=== PATIENT | male | born 1945 | race Caucasian/White ===

== ENCOUNTER 2017-12-03 12:07 | Day surgery (SDC) | payer MEDICARE, OTHER ==
[~2017-12-03] VITALS: Ht 177.8 cm; Wt 82.0 kg
[2017-12-03] MEDS ORDERED: TOPROL XL100 MG PO (12:32)
[2017-12-03] MEDS ORDERED: PRINIVIL20 MG PO (12:33)
[2017-12-03] MEDS ORDERED: PRILOSEC 20MG20 MG PO (12:35)
[2017-12-03] MEDS ORDERED: LIPITOR20 MG PO (12:35)
[2017-12-03] MEDS ORDERED: ZYLOPRIM 100MG100 MG PO (12:36)
[2017-12-03] MEDS ORDERED: COLCRYS0.6 MG PO (12:36)
[2017-12-03 12:48] VITALS: BP 148/77; PULSE 61; TEMP 97.9
[2017-12-03] MEDS ORDERED: METAMUCIL3.4 GM/DOS PO (12:59)
[2017-12-03 13:51] VITALS: BP 156/82; PULSE 62; TEMP 98.3
[2017-12-03 14:05] VITALS: BP 156/82; PULSE 62
[2017-12-03 14:20] VITALS: BP 123/71; PULSE 54
[2017-12-03 14:40] VITALS: BP 118/60; PULSE 50
== END 2017-12-03 15:10 | disposition home or self-care (01) ==
LOC: SDCO 12:07
DX: Z12.11 Encounter for screening for malignant neoplasm of colon (principal); D12.0 Benign neoplasm of cecum; D64.9 Anemia, unspecified; K64.0 First degree hemorrhoids; K21.9 Gastro-esophageal reflux disease without esophagitis; I10 Essential (primary) hypertension
CPT/HCPCS: OP; J2250; J2405; J3010; J7030

== ENCOUNTER 2018-09-26 10:22 | Day surgery (SDC) | payer MEDICARE, OTHER ==
[2018-09-26] VITALS (7 sets, daily range): BP systolic 128–150; BP diastolic 62–81; PULSE 67–87; TEMP 97.4–97.5
[~2018-09-26] VITALS: Ht 177.8 cm; Wt 76.2 kg
[~2018-09-26 10:22] MED LIST: COLCRYS0.6 MG PO; LIPITOR20 MG PO; METAMUCIL3.4 GM/DOS PO; PRILOSEC 20MG20 MG PO; PRINIVIL20 MG PO; TOPROL XL100 MG PO; ZYLOPRIM 100MG100 MG PO
[2018-09-26] MEDS ORDERED: ZYRTEC 10MG10 MG PO (10:49)
[2018-09-26] MEDS ORDERED: MOTRIN 600600 MG/TAB PO (14:36)
[2018-09-26] MEDS ORDERED: COLACE 100100 MG/CAP PO (14:36)
[2018-09-26] MEDS ORDERED: NORCO 325 MG-51 TAB PO (14:36)
== END 2018-09-26 17:35 | disposition home or self-care (01) ==
LOC: SDCO 10:22
DX: K81.0 Acute cholecystitis (principal); K21.9 Gastro-esophageal reflux disease without esophagitis; I10 Essential (primary) hypertension; E78.5 Hyperlipidemia, unspecified; D75.81 Myelofibrosis; Z79.899 Other long term (current) drug therapy; D64.9 Anemia, unspecified; Z80.49 Family history of malignant neoplasm of other genital organs
CPT/HCPCS: J0690; J1100; J2405; J2550; J2704; J2765; J3010; J7120